=== PATIENT | male | born 1990 | race Two or more races ===

== ENCOUNTER 2024-05-05 08:32 | Emergency (ER) | payer OTHER ==
[~2024-05-05] VITALS: Ht 180.3 cm; Wt 111.1 kg
[~2024-05-05 08:32] MED LIST: PEPCID20 MG PO
[2024-05-05] MEDS ORDERED: PEPCID AC20 MG PO (09:25)
[2024-05-05] MEDS ORDERED: KETO10TA2 PO (09:25)
[2024-05-05] MEDS ORDERED: CEPHALEXIN750 MG PO (09:25)
[2024-05-05] MEDS ORDERED: CEFTRIAXONE SODIUM 1,000 MG VIAL IM ONE (09:30)
[2024-05-05] MEDS ORDERED: TETANUS & DIPHTHERIA TOX,ADULT 0.5 ML VIAL IM ONE (09:30)
[2024-05-05] MEDS ORDERED: KETOROLAC TROMETHAMINE 60 MG VIAL IM ONE (09:30)
== END 2024-05-05 10:00 | disposition home or self-care (01) ==
LOC: ER 08:33
DX: S60.419A Abrasion of unspecified finger, initial encounter (principal); X83.8XXA Intentional self-harm by other specified means, initial encounter; Y93.89 Activity, other specified; Y92.89 Other specified places as the place of occurrence of the external cause; Y99.8 Other external cause status
CPT/HCPCS: 90471; 90714; J1670